=== PATIENT | male | born 1955 | race Asian ===

== ENCOUNTER 2018-03-15 10:04 | Emergency (ER) | payer SELFPAY ==
[~2018-03-15] VITALS: Ht 170.2 cm; Wt 72.6 kg
[2018-03-15 10:07] VITALS: Ht 170.2 cm; Wt 72.6 kg
[2018-03-15 11:36] VITALS: BP 134/92
== END 2018-03-15 11:36 | disposition home or self-care (01) ==
LOC: ED 10:04
DX: S13.4XXA Sprain of ligaments of cervical spine, initial encounter (principal); V49.9XXA Car occupant (driver) (passenger) injured in unspecified traffic accident, initial encounter; Y93.89 Activity, other specified; Y92.89 Other specified places as the place of occurrence of the external cause; Y99.8 Other external cause status